=== PATIENT | male | born 1955 | race Caucasian/White ===

== ENCOUNTER 2018-03-02 13:13 | Emergency (ER) | payer OTHER ==
[2018-03-02 13:22] VITALS: BP 159/90; PULSE 66; TEMP 98; BMI 29.7
--- NOTE | 2018-03-02 14:05 | PDOC ---
History of Present Illness - General Chief Complaint: Back Pain Stated Complaint: FALL/ BACK PAIN Time Seen by Provider: 03/02/18 13:36 History Source: Patient Exam Limitations: No Limitations - History of Present Illness Initial Comments: 03/02/18 14:03 62 yr male slip and fell down 2 steps 2 days ago at work injured low back. Pt with c/o pain to the lower back , worse with movement and bending down and forward. Severity: reports: mild Past History - Past Medical History Allergies/Adverse Reactions: Allergies Allergy/AdvReac Type Severity Reaction Status Date / Time lentils Allergy "RASH-RACHAEL Verified 03/02/18 13:15 ON JOINTS" No Known Drug Allergies Allergy Verified 03/02/18 13:15 Home Medications: Ambulatory Orders Hydrochlorothiazide [Hctz -] 12.5 mg PO BID 03/02/18 Hydrochlorothiazide [Hctz -] 12.5 mg PO BID #14 cap 03/02/18 Anemia: No Asthma: No Cancer: No Cardiac Disorders: No CVA: No COPD: No CHF: No Dementia: No Diabetes: No GI Disorders: Yes (RENAL STONES X3, 1 Kidney removed) Disorders: No HTN: Yes Hypercholesterolemia: Yes (BORDERLINE) Liver Disease: No Seizures: No Thyroid Disease: No - Surgical History Abdominal Surgery: Yes (abd hernia) Appendectomy: Yes Cardiac Surgery: No Cholecystectomy: No Lung Surgery: No Neurologic Surgery: No Orthopedic Surgery: Yes (ANKLE SX WITH SCREWS-LEFT) - Immunization History Immunization Up to Date: Yes - Suicide/Smoking/Psychosocial Hx Smoking History: Former smoker Have you smoked in the past 12 months: No If you are a former smoker, when did you quit?: 5YRS AGO Information on smoking cessation initiated: No Hx Alcohol Use: No Drug/Substance Use Hx: No Substance Use Type: None Hx Substance Use Treatment: No Trauma Specific PMHX - Complaint Specific PMHX Arthritis: No Complaint Specific PMHX Comments:: 03/02/18 15:42 left nephrectomy *Physical Exam - Vital Signs Last Vital Signs Temp Pulse Resp BP Pulse Ox 98 F 66 19 159/90 96 03/02/18 13:15 03/02/18 13:15 03/02/18 13:15 03/02/18 13:15 03/02/18 13:15 - Physical Exam General Appearance: Yes: Nourished, Appropriately Dressed HEENT: positive: EOMI, GERARD Neck: positive: Supple. negative: Tender Respiratory/Chest: positive: Lungs Clear, Normal Breath Sounds Cardiovascular: positive: Regular Rhythm, Regular Rate Gastrointestinal/Abdominal: positive: Normal Bowel Sounds, Soft. negative: Tender Musculoskeletal: positive: Normal Inspection, Other (ttp right lower back soft tissue to flank ) Extremity: positive: Normal Capillary Refill, Normal Inspection, Normal Range of Motion Integumentary: positive: Normal Color, Dry, Warm Neurologic: positive: category analyst II-XII NML intact, Fully Oriented, Alert, Normal Mood/ Affect, Normal Response, Motor Strength 01/31 ED Treatment Course - LABORATORY CBC & Chemistry Diagram: 03/02/18 14:46 Medical Decision Making - Medical Decision Making 03/02/18 14:04 cc: low back injury friday after he slipped and fell. pt with pain to low back with movement and bending. 03/02/18 15:42 urine pos for hematuria will get ct to r/o kidney injury pt agrees with plan 03/02/18 16:46 *DC/Admit/Observation/Transfer Diagnosis at time of Disposition: Contusion Qualifiers: Encounter type: initial encounter Contusion area: lower back Qualified Code(s) : S30.0XXA - Contusion of lower back and pelvis, initial encounter - Discharge Dispostion Disposition: HOME Condition at time of disposition: Good - Prescriptions Prescriptions: Hydrochlorothiazide [Hctz -] 12.5 mg PO BID #14 cap - Referrals Referrals: Nikko Gallegos MD [Primary Care Provider] - - Patient Instructions Additional Instructions: follow with your doctor in 2-3 days for follow up take motrin as directed for pain apply warm compresses every 3-4hrs for 30 minutes - Post Discharge Activity
[2018-03-02 14:29] LABS: URINE APPEARANCE CLEAR; URINE BILIRUBIN NEGATIVE (<2.0 mg/dL); URINE BLOOD 1+ (NEGATIVE); URINE COLOR COLORLESS; URINE GLUCOSE (UA) NEGATIVE (NEGATIVE); URINE KETONE NEGATIVE (NEGATIVE); URINE LEUK ESTERASE NEGATIVE (NEGATIVE); URINE NITRITE NEGATIVE (NEGATIVE); URINE PROTEIN NEGATIVE (NEGATIVE); URINE UROBILINOGEN NEGATIVE mg/dL (0.2-1.0)
[2018-03-02 15:16] LABS: ANION GAP 7 (8-16); BLOOD UREA NITROGEN 21 mg/dL (7-18); CALCIUM 8.8 mg/dL (8.5-10.1); CHLORIDE 105 mmol/L (98-107); CO2 26 mmol/L (21-32); CREATININE 1.1 mg/dL (0.7-1.3); GLUCOSE,RANDOM 87 mg/dL (74-106); POTASSIUM 4.5 mmol/L (3.5-5.1); SODIUM 138 mmol/L (136-145)
== END 2018-03-02 16:42 | disposition home or self-care (01) ==
LOC: JERFT 13:13
DX: S30.0XXA Contusion of lower back and pelvis, initial encounter (principal); W10.8XXA Fall (on) (from) other stairs and steps, initial encounter; Y93.89 Activity, other specified; Y92.511 Restaurant or cafe as the place of occurrence of the external cause; Y99.0 Civilian activity done for income or pay; I10 Essential (primary) hypertension; E78.00 Pure hypercholesterolemia, unspecified; Z87.442 Personal history of urinary calculi; Z90.5 Acquired absence of kidney
CPT/HCPCS: 36415; 74177-TC; 80048; 81003; 81015; 99282-25

== ENCOUNTER 2021-11-14 16:23 | Emergency (ER) | payer OTHER ==
[2021-11-14 16:35] VITALS: TEMP 97.8; BMI 29.2
[2021-11-14 18:05] LABS: EPI CELLS 1 /uL (0-25.1); HYALINE CASTS 0 /uL (0-3.1); PH,URINE 6.5 (5.0-8.0); URINE APPEARANCE CLEAR; URINE BACTERIA 182 /uL (0-1359); URINE BILIRUBIN NEGATIVE (NEGATIVE); URINE COLOR YELLOW; URINE GLUCOSE (UA) NEGATIVE (NEGATIVE); URINE KETONE NEGATIVE (NEGATIVE); URINE LEUK ESTERASE TRACE (NEGATIVE); URINE NITRITE NEGATIVE (NEGATIVE); URINE PROTEIN 2+ (NEGATIVE); URINE RBC 1882 /uL (0-23.9); URINE UROBILINOGEN 0.2 mg/dL (0.2-1.0); URINE WBC 13 /uL (0-25.8)
[2021-11-14 18:13] LABS: BASO % 0.7 % (0-2.0); EOS % 0.9 % (0-4.5); HEMATOCRIT 45.6 % (35.4-49); HEMOGLOBIN 15.7 GM/dL (11.7-16.9); MCH 32.3 pg (25.7-33.7); MCHC 34.4 g/dl (32.0-35.9); MEAN CELL VOLUME 93.8 fl (80-96); MEAN PLT VOLUME 8.4 fl (7.5-11.1); NEUT % 72.4 % (42.8-82.8); PLATELET COUNT 266 10^3/uL (134-434); RBC 4.86 M/mm3 (4.00-5.60); WHITE BLOOD COUNT 7.1 K/mm3 (4.0-10.0)
[2021-11-14 18:22] LABS: CALCIUM 9.1 mg/dL (8.5-10.1)
[2021-11-14 18:23] LABS: BLOOD UREA NITROGEN 34.3 mg/dL (7-18)
[2021-11-14 18:26] LABS: CREATININE 1.7 mg/dL (0.55-1.3)
[2021-11-14 20:30] LABS: CALCIUM 9.4 mg/dL (8.5-10.1)
[2021-11-14 20:31] LABS: BLOOD UREA NITROGEN 35.2 mg/dL (7-18)
[2021-11-14 20:34] LABS: CREATININE 1.6 mg/dL (0.55-1.3)
[2021-11-14] MEDS ORDERED: LOSARTAN POTASSIUM 50 MG TABLET PO ONE (21:11)
[2021-11-14] MEDS ORDERED: LOSARTAN POTASSIUM 50 MG TABLET ONE (21:16)
[2021-11-14 21:55] VITALS: BP 150/90; PULSE 88
== END 2021-11-14 21:55 | disposition home or self-care (01) ==
LOC: JER 16:23
DX: R31.9 Hematuria, unspecified (principal)
CPT/HCPCS: 36415; 74176-TC; 80048; 81003; 85025; 87086; 99284-25

== ENCOUNTER 2023-12-04 04:10 | Day surgery (SDC) | payer OTHER ==
[2023-12-01 12:05] VITALS: BMI 29.2
[2023-12-04 10:08] VITALS: TEMP 98
[2023-12-04 10:27] VITALS: RESP 18
[2023-12-04 10:43] VITALS: BP 111/72; PULSE 65
== END 2023-12-04 10:47 | disposition home or self-care (01) ==
LOC: JASU-ENDO 04:10
PROVIDERS: ATTEND Internal Medicine Gastroenterology
PROC: 0DBL8ZX Excision of Transverse Colon, Via Natural or Artificial Opening Endoscopic, Diagnostic (ICD-10-PCS; principal; 2023-12-04 09:00)
DX: Z12.11 Encounter for screening for malignant neoplasm of colon (principal); K63.5 Polyp of colon; K64.8 Other hemorrhoids; K62.89 Other specified diseases of anus and rectum; I10 Essential (primary) hypertension
CPT/HCPCS: 88305-TC